=== PATIENT | female | born 1945 | race Caucasian/White ===

== ENCOUNTER → 2016-08-22 | Outpatient (CLI) | payer MEDICARE, OTHER ==
[~2016-08-22] MED LIST: COZAAR50 MG PO; CRESTOR5 MG PO; CYMBALTA60 MG PO; DOXIPIN PO; NORVASC 5 MG TAB5 MG PO; PRILOSEC OTC20 MG PO; SINEQUAN CAP 2525 MG PO
== END ==
LOC: LAB 11:23
DX: C20 Malignant neoplasm of rectum (principal); E87.6 Hypokalemia; E83.42 Hypomagnesemia; C77.2 Secondary and unspecified malignant neoplasm of intra-abdominal lymph nodes; Z88.2 Allergy status to sulfonamides
CPT/HCPCS: 36415; 82565; 84520

== ENCOUNTER → 2016-08-27 | Outpatient (CLI) | payer MEDICARE, OTHER | LOC: CT 10:48 | DX: C20 Malignant neoplasm of rectum (principal); E87.6 Hypokalemia; E83.42 Hypomagnesemia; C77.2 Secondary and unspecified malignant neoplasm of intra-abdominal lymph nodes | CPT/HCPCS: J7050; Q9962 ==